=== PATIENT | female | born 1990 | race African-American/Black ===

== ENCOUNTER 2024-03-06 17:43 | Emergency (ER) | payer OTHER ==
[~2024-03-06] VITALS: Ht 175.3 cm; Wt 73.0 kg
[2024-03-06 17:55] VITALS: BP 111/75; O2SAT 100
[2024-03-06] MEDS ORDERED: hydrOXYzine PAMOATE 25 MG CAPSULE PO ONE (19:00)
[2024-03-06 19:27] LABS: HEMATOCRIT 35.2 % (36.0-45.00); HEMOGLOBIN 11.3 g/dL (12.0-15.00); MEAN CELL VOLUME 74.3 fL (80.00-100.00); MEAN CORPUSCULAR HEMOGLOBIN 23.9 pg (27.00-32.0); MEAN CORPUSCULAR HGB CONC 32.2 g/dl (32.0-36.0); PLATELET COUNT 197 K/uL (150-450); RED BLOOD COUNT 4.74 M/uL (4.00-6.00); RED CELL DISTRIBUTION WIDTH 14.4 % (11.5-14.5)
[2024-03-06] MEDS ORDERED: 0.9 % SODIUM CHLORIDE 500 ML IV ONE (20:45)
[2024-03-06 21:20] LABS: ALBUMIN 4.1 gm/dL (3.4-5.0); BILIRUBIN TOTAL 0.56 mg/dL (0.3-1.2); CALCIUM 9.6 mg/dL (8.5-10.1); CREATININE SERUM 0.6 mg/dL (0.55-1.02); GFR 115.85; POTASSIUM 3.85 mEq/L (3.5-5.1); TOTAL PROTEIN 8.1 gm/dL (6.4-8.2)
[2024-03-06] MEDS ORDERED: KETOROLAC TROMETHAMINE 60 MG VIAL IM ONE (22:00)
== END 2024-03-06 22:23 | disposition left against medical advice (07) ==
LOC: ER 17:44
PROVIDERS: Nurse Practitioner Family
DX: R07.89 Other chest pain (principal); R10.31 Right lower quadrant pain; Z20.822 Contact with and (suspected) exposure to COVID-19; Z87.09 Personal history of other diseases of the respiratory system